=== PATIENT | male | born 1950 | race Caucasian/White ===

== ENCOUNTER 2016-11-11 17:34 | Observation (INO) | payer MEDICARE, OTHER ==
[~2016-11-11] VITALS: Ht 167.6 cm; Wt 85.0 kg
[~2016-11-11 17:34] MED LIST: ASPI81 PO; COQ1200C3 PO; LACTCAP7 PO; LISI-363 PO; NEXI40CA PO; ROSU40 PO; TRAM50 PO
[2016-11-11 17:47] VITALS: BP 174/95; PULSE 84; RESP 18; TEMP 97.5; O2SAT 98
[2016-11-11 17:52] VITALS: RESP 16; O2SAT 98
[2016-11-11] MEDS ORDERED: SODIUM CHLOR 0.9% 1000 ML INJ 1,000 ML IV SCH (17:53)
[2016-11-11] MEDS ORDERED: PANT40TA3 PO (17:54)
[2016-11-11] MEDS ORDERED: ROSU40 PO (17:54)
[2016-11-11] MEDS ORDERED: SACC1CAP3 PO (17:54)
[2016-11-11] MEDS ORDERED: CALCCHW9 CHEW (17:54)
[2016-11-11] MEDS ORDERED: LISI-515 PO (17:54)
[2016-11-11] MEDS ORDERED: ADVA250A INH (17:54)
[2016-11-11] MEDS ORDERED: VITA100036 PO (17:54)
[2016-11-11] MEDS ORDERED: ASPI1TAB69 PO (17:54)
[2016-11-11] MEDS ORDERED: EPINEPHrine HCL (1:1000) 1 MG/ML VIAL IM ONE (18:00)
[2016-11-11] MEDS ORDERED: diphenhydrAMINE HCL 50 MG/ML VIAL IM ONE (18:00)
[2016-11-11] MEDS ORDERED: SODIUM CHLORIDE 0.9% FLUSH 5 ML FLUSH IVF PRN (18:00)
[2016-11-11] MEDS ORDERED: methylPREDNISolone SOD SUCC 125 MG/2 ML VIAL IM ONE (18:00)
[2016-11-11] MEDS ORDERED: diphenhydrAMINE HCL 50 MG/ML VIAL IV PUSH ONE (18:00)
[2016-11-11] MEDS ORDERED: methylPREDNISolone SOD SUCC 125 MG/2 ML VIAL IV PUSH ONE (18:00)
[2016-11-11 18:21] LABS: AUTOMATED NEUTROPHIL # 5.6 TH/MM3 (1.8-7.7); BASOPHIL % 0.5 % (0.0-2.0); EOSINOPHIL # 0.2 TH/MM3 (0-0.4); EOSINOPHIL % 1.9 % (0.0-4.0); HEMATOCRIT 38.9 % (39.0-51.0); HEMO FLAGS DIFF FINAL; LYMPH % 25.7 % (9.0-44.0); LYMPHOCYTE # 2.3 TH/MM3 (1.0-4.8); MEAN CELL VOLUME 86.6 FL (80.0-100.0); MEAN CORPUSCULAR HEMOGLOBIN 29.2 PG (27.0-34.0); MEAN CORPUSCULAR HGB CONC 33.7 % (32.0-36.0); MONO % 10.8 % (0.0-8.0); NEUT % 61.1 % (16.0-70.0); PLATELET COUNT 323 TH/MM3 (150-450); RED BLOOD COUNT 4.49 MIL/MM3 (4.50-5.90); RED CELL DISTRIBUTION WIDTH 12.4 % (11.6-17.2); WHITE BLOOD COUNT 9.1 TH/MM3 (4.0-11.0)
[2016-11-11 18:27] LABS: CHLORIDE 97 MEQ/L (98-107); POTASSIUM 4.3 MEQ/L (3.5-5.1); SODIUM (NA) 133 MEQ/L (136-145)
[2016-11-11 18:30] LABS: ANION GAP 6 MEQ/L (5-15)
[2016-11-11 18:31] LABS: BLOOD UREA NITROGEN 16 MG/DL (7-18)
[2016-11-11 18:33] LABS: ALT (GPT) 20 U/L (12-78); AST (GOT) 14 U/L (15-37)
[2016-11-11 18:34] LABS: GLOMERULAR FILTRATION RATE 75 ML/MIN (>89)
[2016-11-11 18:35] LABS: TOTAL BILIRUBIN ADULT 0.4 MG/DL (0.2-1.0)
[2016-11-11 18:36] LABS: ALKALINE PHOSPHATASE 53 U/L (45-117)
--- NOTE | 2016-11-11 18:51 | PD ---
HPI Chief Complaint: Allergic/Adverse Reaction Time Seen by Provider: 17:49 Travel History International Travel<30 days: No Contact w/Intl Traveler<30days: No Traveled to known affect area: No History of Present Illness HPI Patient is a 66-year-old male with a history of thrush on nystatin as well as lisinopril for blood pressure control presents with swelling of his upper lip since approximately 12:30 this afternoon. Patient has no other complaints. States he is not having any difficulty swallowing or breathing. Denies any nausea or vomiting. Denies any tongue swelling. PFSH Past Medical History High Cholesterol: Yes COPD: Yes Cerebrovascular Accident: Yes (TIA [place] 2005) Diminished Hearing: No Diverticulitis: Yes Gastrointestinal Disorders: Yes (diverticulosis) Hypertension: Yes Respiratory: Yes (COPD) Triglycerides - High: Yes Past Surgical History Appendectomy: Yes Social History Alcohol Use: Yes (OCCAS. BEER) Tobacco Use: No (QUIT 2014) Substance Use: No Allergies-Medications (Allergen,Severity, Reaction): Coded Allergies: Lisinopril (Verified Allergy, Severe, ANGIOEDEMA, 11/11/16) Keflex (Verified Allergy, Unknown, 11/11/16) Reported Meds & Prescriptions Reported Meds & Active Scripts Active Reported Probiotic (Saccharomyces Boulardii) 250 Mg Cap 250 Mg PO BID Advair Diskus Inh (Fluticasone-Salmeterol Inh) 250-50 Mcg/Blist Aer 1 Puff INH BID Rinse mouth after use. Vitamin D3 (Cholecalciferol) 1,000 Unit Cap 1,000 Units PO DAILY Calcium 1200 (Calcium Carbonate-Vitamin D W/Minerals) 1,200-1,000 Mg-Unit Chew 1 Tab CHEW DAILY Lisinopril 20 Mg Tab 20 Mg PO DAILY Pantoprazole (Pantoprazole Sodium) 40 Mg Tab 40 Mg PO DAILY Crestor (Rosuvastatin Calcium) 40 Mg Tab 40 Mg PO HS Aspirin 81 Mg Tabdr 81 Mg PO DAILY Review of Systems Except as stated in HPI: all other systems reviewed are Neg Physical Exam Narrative GENERAL: Well-developed well-nourished distress SKIN: Warm and dry. HEAD: Atraumatic. Normocephalic. EYES: Pupils equal and round. No scleral icterus. No injection or drainage. ENT: No nasal bleeding or discharge. Mucous membranes pink and moist. Mallampati of 3. Patient does have significant edema of his upper lip, no edema of the lower lip. There is no edema of the uvula or soft palate. Does have swallow intact. Tolerating his own secretions. No respiratory distress at this time. NECK: Trachea midline. No JVD. CARDIOVASCULAR: Regular rate and rhythm. No murmur appreciated. RESPIRATORY: No accessory muscle use. Clear to auscultation. Breath sounds equal bilaterally. GASTROINTESTINAL: Abdomen soft, non-tender, nondistended. Hepatic and splenic margins not palpable. MUSCULOSKELETAL: No obvious deformities. No clubbing. No cyanosis. No edema. NEUROLOGICAL: Awake and alert. No obvious cranial nerve deficits. Motor grossly within normal limits. Normal speech. PSYCHIATRIC: Appropriate mood and affect; insight and judgment normal. Data Data Last Documented VS Vital Signs Date Time Temp Pulse Resp B/P Pulse Ox O2 Delivery O2 Flow Rate FiO2 11/11/16 19:35 Room Air 11/11/16 19:33 82 18 172/76 98 11/11/16 17:47 97.5 Orders Complete Blood Count With Diff (11/11/16 17:53) Comprehensive Metabolic Panel (11/11/16 17:53) Ecg Monitoring (11/11/16 17:53) Iv Access Insert/Monitor (11/11/16 17:53) Oximetry (11/11/16 17:53) Diphenhydramine Inj (Benadryl Inj) (11/11/16 18:00) Methylprednisolone So Succ Inj (Solumedr (11/11/16 18:00) Sodium Chlor 0.9% 1000 Ml Inj (Ns 1000 M (11/11/16 17:53) Sodium Chloride 0.9% Flush (Ns Flush) (11/11/16 18:00) Epinephrine (1:1000) Inj (Adrenalin (1:1 (11/11/16 18:00) Diphenhydramine Inj (Benadryl Inj) (11/11/16 18:00) Methylprednisolone So Succ Inj (Solumedr (11/11/16 18:00) Admit Order (Ed Use Only) (11/11/16 ) Labs Laboratory Tests Test 11/11/16 17:50 White Blood Count 9.1 TH/MM3 Red Blood Count 4.49 MIL/MM3 Hemoglobin 13.1 GM/DL Hematocrit 38.9 % Mean Corpuscular Volume 86.6 FL Mean Corpuscular Hemoglobin 29.2 PG Mean Corpuscular Hemoglobin 33.7 % Concent Red Cell Distribution Width 12.4 % Platelet Count 323 TH/MM3 Mean Platelet Volume 7.0 FL Neutrophils (%) (Auto) 61.1 % Lymphocytes (%) (Auto) 25.7 % Monocytes (%) (Auto) 10.8 % Eosinophils (%) (Auto) 1.9 % Basophils (%) (Auto) 0.5 % Neutrophils # (Auto) 5.6 TH/MM3 Lymphocytes # (Auto) 2.3 TH/MM3 Monocytes # (Auto) 1.0 TH/MM3 Eosinophils # (Auto) 0.2 TH/MM3 Basophils # (Auto) 0.0 TH/MM3 CBC Comment DIFF FINAL Differential Comment Sodium Level 133 MEQ/L Potassium Level 4.3 MEQ/L Chloride Level 97 MEQ/L Carbon Dioxide Level 30.0 MEQ/L Anion Gap 6 MEQ/L Blood Urea Nitrogen 16 MG/DL Creatinine 1.00 MG/DL Estimat Glomerular Filtration 75 ML/MIN Rate Random Glucose 90 MG/DL Calcium Level 9.0 MG/DL Total Bilirubin 0.4 MG/DL Aspartate Amino Transf 14 U/L (AST/SGOT) Alanine Aminotransferase 20 U/L (ALT/SGPT) Alkaline Phosphatase 53 U/L Total Protein 7.7 GM/DL Albumin 3.6 GM/DL [facility] Medical Decision Making Medical Screen Exam Complete: Yes Emergency Medical Condition: Yes Differential Diagnosis MAUREEN inhibitor angioedema, allergic reaction to nystatin, compromised airway seems unlikely. Narrative Course Patient was roomed in the emergency department, he is obvious edema of the upper lip. I'll putty is 3 however there is no edema of his soft palate tongue. He appears well and in no apparent distress. The time of this dictation the patient is been having symptoms for 9 hours. He has been in the emergency department for 4 hours and has not had any deterioration. However he is not showing much improvement. He was treated with epinephrine Benadryl and steroids. I did discuss with Dr. Ms. العراقي for observation overnight in our ICU here. She is agreeable to this course of action. The on-call ED overnight physician has been aware of this patient as well. Diagnosis Primary Impression: MAUREEN inhibitor-aggravated angioedema Qualified Code: T46.4X1A - MAUREEN inhibitor-aggravated angioedema, accidental or unintentional, initial encounter Admitting Information Admitting Physician Requests: Observation Disposition: DISCHARGE HOME Condition: Stable Christiano Santoro MD Nov 11, 2016 18:51
[2016-11-11 19:33] VITALS: BP 172/76; PULSE 82; RESP 18; O2SAT 98
[2016-11-11] MEDS ORDERED: ACETAMINOPHEN/HYDROcodone 325 MG/5 MG TAB PO PRN (20:15)
[2016-11-11] MEDS ORDERED: ACETAMINOPHEN 325 MG TAB PO PRN (20:15)
[2016-11-11] MEDS ORDERED: ONDANSETRON HCL 4 MG/2 ML VIAL IVP PRN (20:15)
[2016-11-11] MEDS ORDERED: BISACODYL 10 MG SUPP PR PRN (20:15)
[2016-11-11] MEDS ORDERED: SODIUM CHLORIDE 0.9% FLUSH 5 ML FLUSH FLUSH PRN (20:15)
[2016-11-11] MEDS ORDERED: MORPHINE SULFATE 4 MG/ML INJ IV PRN (20:15)
[2016-11-11] MEDS: SODIUM CHLOR 0.9% 1000 ML INJ 1,000 ML IV SCH (20:34)
[2016-11-11] MEDS: SODIUM CHLORIDE 0.9% FLUSH 5 ML FLUSH FLUSH SCH (20:52)
[2016-11-11] MEDS ORDERED: ATORVASTATIN 40 MG TAB PO SCH (21:00)
[2016-11-11] MEDS: FAMOTIDINE 20 MG/2 ML VIAL IV PUSH SCH (21:00)
[2016-11-11] MEDS ORDERED: ATORVASTATIN 80 MG TAB PO SCH (21:00)
[2016-11-11 21:17] VITALS: BP 147/72; PULSE 88; RESP 18; O2SAT 99
[2016-11-11 22:51] VITALS: PULSE 82; RESP 16; O2SAT 97
[2016-11-11] MEDS: diphenhydrAMINE HCL 50 MG/ML VIAL IV PUSH SCH (23:41)
[2016-11-11] MEDS: methylPREDNISolone SOD SUCC 40 MG/1 ML VIAL IV PUSH SCH (23:43)
[2016-11-11 23:45] VITALS: BP 155/89; PULSE 83; RESP 16; O2SAT 97
[2016-11-12] VITALS (12 sets, daily range): BP systolic 126–165; BP diastolic 64–90; PULSE 71–90; RESP 12–24; TEMP 97.9–98.9; O2SAT 95–98
[2016-11-12] MEDS ORDERED: CHLORHEXIDINE GLUCONATE 2 % 1 PACK (2 CLOTHS)(extra cloths) TOP PRN (01:30)
[2016-11-12] MEDS: diphenhydrAMINE HCL 50 MG/ML VIAL IV PUSH SCH ×3 (03:47→12:49)
[2016-11-12] MEDS ORDERED: CHLORHEXIDINE GLUCONATE 2 % 1 PACK (2 CLOTHS)(taper/protocol) TOP SCH (04:00)
[2016-11-12] MEDS: methylPREDNISolone SOD SUCC 40 MG/1 ML VIAL IV PUSH SCH ×2 (05:34→12:48)
[2016-11-12 05:47] LABS: AUTOMATED NEUTROPHIL # 5.9 TH/MM3 (1.8-7.7); BASOPHIL # 0.2 TH/MM3 (0-0.2); BASOPHIL % 2.4 % (0.0-2.0); EOSINOPHIL % 0.2 % (0.0-4.0); HEMATOCRIT 37.2 % (39.0-51.0); LYMPH % 11.6 % (9.0-44.0); LYMPHOCYTE # 0.8 TH/MM3 (1.0-4.8); MEAN CELL VOLUME 85.2 FL (80.0-100.0); MEAN CORPUSCULAR HEMOGLOBIN 29.2 PG (27.0-34.0); MEAN CORPUSCULAR HGB CONC 34.3 % (32.0-36.0); MONO % 1.8 % (0.0-8.0); PLATELET COUNT 296 TH/MM3 (150-450); RED BLOOD COUNT 4.36 MIL/MM3 (4.50-5.90); RED CELL DISTRIBUTION WIDTH 12.3 % (11.6-17.2)
[2016-11-12 05:49] LABS: HEMO FLAGS DIFF FINAL
[2016-11-12 05:53] LABS: CHLORIDE 100 MEQ/L (98-107); POTASSIUM 4.1 MEQ/L (3.5-5.1); SODIUM (NA) 136 MEQ/L (136-145)
[2016-11-12 05:57] LABS: ANION GAP 9 MEQ/L (5-15); BICARBONATE 26.8 MEQ/L (21.0-32.0); BLOOD UREA NITROGEN 13 MG/DL (7-18)
[2016-11-12 06:00] LABS: ALT (GPT) 18 U/L (12-78); AST (GOT) 10 U/L (15-37); GLOMERULAR FILTRATION RATE 89 ML/MIN (>89)
[2016-11-12 06:02] LABS: TOTAL BILIRUBIN ADULT 0.4 MG/DL (0.2-1.0)
[2016-11-12 06:03] LABS: ALKALINE PHOSPHATASE 47 U/L (45-117)
--- NOTE | 2016-11-12 07:49 | HHI.HP ---
[facility] Deandre Peter MD Admission Diagnosis Ronny-I angioedema Diagnoses: (1) Angioedema Diagnosis: Principal (2) Hyponatremia Diagnosis: Principal (3) Hypertension Diagnosis: Secondary (4) Hyperlipidemia Diagnosis: Secondary (5) Gastroesophageal reflux Diagnosis: Secondary (6) History of oral candidiasis Diagnosis: Secondary Chief Complaint: Facial swelling Travel History International Travel<30 Days: No Contact w/Intl Traveler <30 Da: No Traveled to Known Affected Are: No History of Present Illness 66-year-old male with known history of hypertension, hyperlipidemia, gastroesophageal reflux, pharyngeal and esophageal candidiasis who presented to hospital because of facial swelling. Patient states that his normal state of health until 2 days ago when he started noticing hoarseness to his speech. He states that that that is his symptoms whenever he develops oral/esophageal candidiasis. He states that he been experiencing that condition for over the last 2 years. His doctor in [place] prescribes him nystatin oral suspension. He states he started using that twice daily over the last 2 days. Yesterday he started noticing a sensation in his left upper lip and left cheek. He noticed that his upper lip and face were swelling at approximately 1 PM yesterday. Patient came to emergency department at approximate 5:30 yesterday afternoon for evaluation. Patient continue to have upper lip swelling and ER physician indicated that possible angioedema secondary RONNY inhibitor. Patient does take lisinopril in which has been taken for 810 years without any previous symptoms of facial edema. Patient denies any dysphagia, globus sensation, shortness of breath, dyspnea, difficulty speaking. Overnight it is indicated that the patient still has the upper lip swelling and now has developed lower lip swelling as well. He is talking with a thick tongue, however he states that that is normal for him sometimes. Patient recommended observation the hospital for further monitoring Review of Systems Constitutional: DENIES: Diaphoretic episodes, Fatigue, Fever, Weight gain, Weight loss, Chills, Dizziness, Change in appetite, Night Sweats Eyes: DENIES: Blurred vision, Diplopia, Eye inflammation, Eye pain, Vision loss , Double Vision Ears, nose, mouth, throat: COMPLAINS OF: Hoarseness, DENIES: Throat pain, Running Nose, Sinus Pain, Odynophagia Respiratory: DENIES: Apneas, Cough, Snoring, Wheezing, Hemoptysis, Sputum production, Shortness of breath Cardiovascular: DENIES: Chest pain, Palpitations, Syncope, Dyspnea on Exertion , Lower Extremity Edema, Orthopnea Gastrointestinal: DENIES: Abdominal pain, Black stools, Bloody stools, Constipation, Diarrhea, Nausea, Vomiting, Difficulty Swallowing, Anorexia Neurologic: DENIES: Abnormal gait, Headache, Localized weakness, Paresthesias, Speech Problems, Tremor, Poor Balance Psychiatric: COMPLAINS OF: Suicidal Ideation, DENIES: Anxiety, Confusion, Mood changes, Depression Past Family Social History Past Medical History Hypertension Hyperlipidemia Gastroesophageal reflux History of Pharyngeal/esophageal candidiasis Chronic obstructive pulmonary disease History TIA Past Surgical History Appendectomy Reported Medications Reported Meds & Active Scripts Active Reported Probiotic (Saccharomyces Boulardii) 250 Mg Cap 250 Mg PO BID Advair Diskus Inh (Fluticasone-Salmeterol Inh) 250-50 Mcg/Blist Aer 1 Puff INH BID Rinse mouth after use. Vitamin D3 (Cholecalciferol) 1,000 Unit Cap 1,000 Units PO DAILY Calcium 1200 (Calcium Carbonate-Vitamin D W/Minerals) 1,200-1,000 Mg-Unit Chew 1 Tab CHEW DAILY Lisinopril 20 Mg Tab 20 Mg PO DAILY Pantoprazole (Pantoprazole Sodium) 40 Mg Tab 40 Mg PO DAILY Crestor (Rosuvastatin Calcium) 40 Mg Tab 40 Mg PO HS Aspirin 81 Mg Tabdr 81 Mg PO DAILY Allergies: Coded Allergies: Lisinopril (Verified Allergy, Severe, ANGIOEDEMA, 11/11/16) Keflex (Verified Allergy, Unknown, 11/11/16) Family History Reviewed is significant for father having coronary artery disease requiring bypass surgery Social History Patient quit smoking 3 years ago, prior to that he smoked one pack a cigarettes a day since he was 16 years old. He does drink alcohol occasionally. Denies any illicit drugs Physical Exam Vital Signs Vital Signs Date Time Temp Pulse Resp B/P Pulse Ox O2 Delivery O2 Flow Rate FiO2 11/12/16 06:00 73 11/12/16 06:00 71 16 154/78 96 11/12/16 04:00 79 11/12/16 04:00 74 16 165/90 96 11/12/16 02:00 86 11/12/16 02:00 86 16 142/72 95 11/12/16 01:00 98 Room Air 11/12/16 01:00 88 11/12/16 00:30 98.9 90 20 159/79 97 11/11/16 23:45 83 16 155/89 97 Room Air 11/11/16 22:51 82 16 97 Room Air 11/11/16 21:17 88 18 147/72 99 Room Air 11/11/16 19:35 Room Air 11/11/16 19:33 82 18 172/76 98 Room Air 11/11/16 17:52 84 16 98 Room Air 11/11/16 17:52 16 98 Room Air 11/11/16 17:47 97.5 84 18 174/95 98 Physical Exam GENERAL: Well-developed, well-nourished, in no acute distress. alert and orientated HEENT: Head is normocephalic without any lesions or masses noted. Facial features do indicate upper and lower lip swelling, does also appear to have bilateral cheek swelling.. Eyes: Pupils equal round reactive to light. Extraocular muscles are intact. Conjunctivae were clear. Oropharyngeal: Pharynx without any erythema edema. Tongue is midline without deviation. Buccal mucosa is moist without any masses or lesions NECK: Supple without any masses. Trachea midline no deviation. No JVD, no bruits are appreciated CARDIAC: Regular rhythm, regular rate. S1/S2 are heard. No murmurs gallops or rubs. LUNGS: Clear to auscultation bilaterally. No wheeze, rhonchi or rales. No use of accessory muscles on inspiration or expiration. ABDOMEN: Soft, nontender. Nondistended. Bowel sounds heard in all 4 quadrants. No organomegaly or masses. Negative rebound, negative guarding EXTREMITIES: No edema, pulses are equal bilaterally. No cyanosis or clubbing NEUROLOGY: Mood and affect appear appropriate. Cranial nerves II through XII grossly intact. Muscle strength 5/5 in upper and lower extremities bilaterally. Deep tendon reflexes are 2+ in upper and lower extremities bilaterally. Laboratory Laboratory Tests Test 11/11/16 11/12/16 17:50 05:37 White Blood Count 9.1 7.0 Red Blood Count 4.49 4.36 Hemoglobin 13.1 12.8 Hematocrit 38.9 37.2 Mean Corpuscular Volume 86.6 85.2 Mean Corpuscular Hemoglobin 29.2 29.2 Mean Corpuscular Hemoglobin 33.7 34.3 Concent Red Cell Distribution Width 12.4 12.3 Platelet Count 323 296 Mean Platelet Volume 7.0 6.8 Neutrophils (%) (Auto) 61.1 84.0 Lymphocytes (%) (Auto) 25.7 11.6 Monocytes (%) (Auto) 10.8 1.8 Eosinophils (%) (Auto) 1.9 0.2 Basophils (%) (Auto) 0.5 2.4 Neutrophils # (Auto) 5.6 5.9 Lymphocytes # (Auto) 2.3 0.8 Monocytes # (Auto) 1.0 0.1 Eosinophils # (Auto) 0.2 0.0 Basophils # (Auto) 0.0 0.2 CBC Comment DIFF FINAL DIFF FINAL Differential Comment Sodium Level 133 136 Potassium Level 4.3 4.1 Chloride Level 97 100 Carbon Dioxide Level 30.0 26.8 Anion Gap 6 9 Blood Urea Nitrogen 16 13 Creatinine 1.00 0.86 Estimat Glomerular Filtration 75 89 Rate Random Glucose 90 112 Calcium Level 9.0 8.5 Total Bilirubin 0.4 0.4 Aspartate Amino Transf 14 10 (AST/SGOT) Alanine Aminotransferase 20 18 (ALT/SGPT) Alkaline Phosphatase 53 47 Total Protein 7.7 7.0 Albumin 3.6 3.3 Result Diagram: 11/12/1637 11/12/16 0537 Assessment and Plan Assessment and Plan Angioedema, likely RONNY inhibitor induced Status post thiamine Medrol, epinephrine, Benadryl and ER Continue Solu-Medrol, Pepcid, Benadryl, supportive care Discontinue RONNY inhibitor Continue monitor closely for any airway compromise Hyponatremia, corrected Continue monitoring place as needed Hypertension Discontinue RONNY inhibitor Start Norvasc Hyperlipidemia Resume statin Chronic obstructive pulmonary disease O2 supplementation maintain O2 sats greater than 92% Advair continued Duo nebs as needed DVT prevention Sequential compression devices Written by David Mercedes PA-C, acting as scribe for Dr. Willis on 11/12/16 at 1250. The documentation accurately reflects the work and decisions performed face-to- face by Dr. Willis on 11/12/16 at 1250. Discharge disposition Discharge home in stable condition Activity: Ad ayaka. Diet: Healthy heart diet Medications per medication reconciliation Follow-up primary medical doctor in one week Problem Qualifiers (1) Hypertension: Qualified Code: I15.9 - Secondary hypertension (2) Hyperlipidemia: Qualified Code: E78.5 - Hyperlipidemia, unspecified hyperlipidemia type (3) Gastroesophageal reflux: Qualified Code: K21.0 - Gastroesophageal reflux disease with esophagitis David Mercedes Nov 12, 2016 07:49
[2016-11-12] MEDS ORDERED: RESP: ALBUTEROL 2.5 MG/IPRATROPIUM 0.5 MG NEB (PRN) NEB (08:00)
[2016-11-12] MEDS: SODIUM CHLORIDE 0.9% FLUSH 5 ML FLUSH FLUSH SCH (08:38)
[2016-11-12] MEDS: FAMOTIDINE 20 MG/2 ML VIAL IV PUSH SCH (08:38)
[2016-11-12] MEDS: SODIUM CHLOR 0.9% 1000 ML INJ 1,000 ML IV SCH (08:57)
[2016-11-12] MEDS ORDERED: BUDESONIDE-FORMOTEROL 160/4.5 MCG INHALER INH SCH (09:00)
[2016-11-12] MEDS ORDERED: amLODIPine BESYLATE 5 MG TAB PO SCH (09:00)
[2016-11-12] MEDS ORDERED: ASPIRIN EC 81 MG TABEC PO SCH (09:00)
[2016-11-12] MEDS ORDERED: AMLO5 PO (13:09)
[2016-11-12] MEDS ORDERED: PRED20 PO (13:09)
[2016-11-12] MEDS ORDERED: ZANTTAB PO (13:09)
--- NOTE | 2016-11-12 13:10 | HHI.DCPOC ---
Discharge Care Plan Diagnosis: (1) Angioedema Goals to Promote Your Health * To prevent worsening of your condition and complications * To maintain your health at the optimal level Directions to Meet Your Goals Take your medications as prescribed Follow your dietary instruction Follow activity as directed Keep your appointments as scheduled Take your immunizations and boosters as scheduled If your symptoms worsen call your PCP, if no PCP go to Urgent Care Center or Emergency Room Smoking is Dangerous to Your Health. Avoid second hand smoke Call the 24-hour hour crisis hotline for domestic abuse at David Mercedes Nov 12, 2016 13:09
== END 2016-11-12 14:45 | disposition home or self-care (01) ==
LOC: PHED 17:34 → INTOOBSV 20:15 → PHEDA 20:15 → PHICU 11-12 00:30
PROVIDERS: ADMIT Family Medicine; ATTEND Family Medicine
DX: T78.3XXA Angioneurotic edema, initial encounter (principal); E87.1 Hypo-osmolality and hyponatremia; I10 Essential (primary) hypertension; E78.5 Hyperlipidemia, unspecified; J44.9 Chronic obstructive pulmonary disease, unspecified; K21.9 Gastro-esophageal reflux disease without esophagitis; E78.00 Pure hypercholesterolemia, unspecified; Z86.73 Personal history of transient ischemic attack (TIA), and cerebral infarction without residual deficits; Z87.891 Personal history of nicotine dependence
CPT/HCPCS: 80053; 85025; 87641; 94150; 96361; 96372; 96374; 96375; 99285; G0378; J0171; J1200; J2920; J2930; J7030